=== PATIENT | male | born 1975 | race Caucasian/White ===

== ENCOUNTER 2020-09-17 19:51 | Emergency (ER) | payer MEDICAID ==
[~2020-09-17] VITALS: Ht 172.7 cm; Wt 113.0 kg
[2020-09-17 19:58] VITALS: BP 151/88
[2020-09-17] MEDS ORDERED: bacitracin 15gm ointment TP ONE (20:25)
--- NOTE | 2020-09-17 20:37 | NUR ---
irrigated minor lac to left 3rd digit with 20ml of NS, pt endy well, applied bactricin ointment and 2 bandaids
== END 2020-09-17 20:39 | disposition home or self-care (01) ==
LOC: ER 19:53
DX: S61.213D Laceration without foreign body of left middle finger without damage to nail, subsequent encounter (principal); Z48.00 Encounter for change or removal of nonsurgical wound dressing; X58.XXXD Exposure to other specified factors, subsequent encounter
CPT/HCPCS: 99281